=== PATIENT | female | born 1960 | race Caucasian/White ===

== ENCOUNTER → 2017-04-15 | Outpatient (REF) ==
[~2017-04-15] MED LIST: ALB6.7R INH; ALBU8.5H IH; ALPR-448 PO; ASPI-715 PO; ATOR40TA24 PO; ATOR40TA69 PO; AZIT-1 PO; CANA100T PO; CEPH-13 PO; CHOL500045 PO; CHOL500050 PO; CITA-156 PO; CYC10 PO; DESO60CR TP; DICL100G39 TOP; DULO60CA51 PO; ERGO500025 PO; EST3 PO; EST625 PO; ESZO3TAB37 PO; EXEN10PE4 SQ; EZE10 PO; FAMO-67 PO; FAMO20TA28 PO; GLI2 PO; GLIM4TAB50 PO; GOLYTE PO; GUAI120L3 PO; HYDR-385 PO; HYDR-389 PO; IBUP-1671 PO; IBUP600T22 PO; INSU100I34 SQ; INSU100I35 SQ; IPRA3AMP21 IH; IPRA4AER IH; LANC-648 MC; LANS30CA63 PO; LANS30CA70 PO; LEVI SUBQ; LEVO112T44 PO; LEVO137T22 PO; LEVO137T23 PO; LEVO50 PO; LIS20 PO; LISI20TA29 PO; LOR5 PO; MET500 PO; METF-410 PO; METH-543 PO; MOMETASONE TOP; MULT-820 PO; NITR-105 PO; OMEG-97 PO; ONDA4TAB PO; PRED20TA6 PO; PRO25 PO; PROM25S PR; Return to work; SYRI-1525 MC; TRAZ-156 PO; TRIA15CR40 TP; TRILI135PT PO; VERA180T53 PO; [UNRECOGNIZED DRUG - CODE]; [UNRECOGNIZED DRUG - CODE] PO
[2017-04-15 07:46] LABS: LDL CHOLESTEROL 88 mg/dl
== END ==
DX: Z02.9 Encounter for administrative examinations, unspecified (principal)

== ENCOUNTER → 2017-04-15 | Outpatient (CLI) | payer OTHER ==
--- NOTE | 2017-04-20 09:30 | RADIOLOGY IMAGING REPORT ---
FACILITY: [facility] - [place] PATIENT NAME: RONNY JAMESON : [id number] MR: [id number] V: [id number] EXAM DATE: [id number] ORDERING PHYSICIAN: ERICA MONTERO TECHNOLOGIST: Alessia Bishop PROCEDURE:BILATERAL DIGITAL SCREENING MAMMOGRAM WITH CAD AND 3D BREAST TOMOSYNTHESIS. COMPARISON:04/09/16 and priors back to 03/09/11.. INDICATIONS:SCREENING FINDINGS: Breast parenchyma is heterogeneously dense. There are scattered bilateral benign appearing calcifications. No concerning grouped calcifications. No mass or architectural distortion. No significant change from priors. DIAGNOSTIC CATEGORY 2--BENIGN FINDING. RECOMMENDATIONS: ROUTINE MAMMOGRAM AND CLINICAL EVALUATION. IMPRESSION: Bi-RADS 2: Benign finding. RECOMMENDATION: Followup screening mammogram in one year. Dictated by: Felipe Jules on 04/18/2017 at 9:02 Transcribed by: TATO on 04/18/2017 at 22:02 Approved by: Emilee Benoit M.D. on 04/20/2017 at 8:49 [facility]
== END ==
LOC: MAMO 04:20
PROVIDERS: ATTEND Nurse Practitioner Family
DX: Z12.31 Encounter for screening mammogram for malignant neoplasm of breast (principal); E11.9 Type 2 diabetes mellitus without complications
CPT/HCPCS: 36415; 77063; 77067; 83036

== ENCOUNTER → 2017-06-15 | Outpatient (CLI) | payer OTHER ==
[~2017-06-15] MED LIST changes: +TRAM-420 PO
--- NOTE | 2017-06-15 17:08 | RADIOLOGY IMAGING REPORT ---
FACILITY: [facility] PATIENT NAME: Cristo Hines : 1960 MR: [id number] V: [id number] EXAM DATE: ORDERING PHYSICIAN: TOMAS CORRIGAN TECHNOLOGIST: Location: [facility] Patient: Cristo Hines : 1960 Visit/Account:[id number] Date of Sevice: 06/15/[address] scan without contrast COMPARISONS: None ADDITIONAL PERTINENT HISTORY: History of diabetes and hypertension. TECHNIQUE: Multiple axial images were obtained from the skull base to the vertex without IV contrast . One of the following dose optimization techniques was utilized in the performance of this exam: Aut omated exposure control; adjustment of the mA and/or kV according to the patient's size; or use of an iterative reconstruction technique. Specific details can be referenced in the facility's radiology CT exam operational policy. FINDINGS: Midline shift: Negative Ventricles: Negative Brain parenchyma: Negative Extra-axial spaces: Negative Intracranial vasculature: Negative Osseous structures: Negative Paranasal sinuses and mastoid air cells: Negative Surrounding soft tissues and orbits: Negative IMPRESSION: Normal head CT scan without contrast. Report Dictated By: Blair Allen MD at 06/15/2017 5:03 PM Report E-Signed By: Blair Allen MD at 06/15/2017 5:04 PM WSN:[id number]
== END ==
LOC: CT 06:54
PROVIDERS: ATTEND Internal Medicine
DX: R51 Headache (principal); E11.9 Type 2 diabetes mellitus without complications; I10 Essential (primary) hypertension; E03.9 Hypothyroidism, unspecified; E78.5 Hyperlipidemia, unspecified
CPT/HCPCS: 70450

== ENCOUNTER → 2017-07-04 | Outpatient (CLI) | payer OTHER ==
[~2017-07-04] MED LIST changes: +BUTA1TAB14 PO; +METO25TA23 PO
[2017-07-04 11:10] LABS: PLATELET COUNT, AUTOMATED 181 K/uL (150-450)
== END ==
LOC: LAB 10:45
PROVIDERS: ATTEND Nurse Practitioner Family
DX: R51 Headache (principal); E11.9 Type 2 diabetes mellitus without complications; I10 Essential (primary) hypertension; E03.9 Hypothyroidism, unspecified
CPT/HCPCS: 36415; 82024; 82040; 82247; 82310; 82374; 82435; 82565; 82947; 83036; 84075; 84132; 84146; 84155; 84295; 84443; 84450; 84460; 84520; 85025; 85651; 86140

== ENCOUNTER → 2017-08-25 | Outpatient (CLI) | payer OTHER ==
[~2017-08-25] MED LIST changes: -METF-410 PO; +METF-411 PO
--- NOTE | 2017-08-25 14:11 | Medical Nutrition Therapy ---
Nutritional Education Nutrition Education Topic: Diabetic Nutrition Teaching Recipient: Patient Nutrition Counseling: Pt recieved CGM insertion with removal scheduled and report provided to PCP on . CMG Insertion/Removal: Yes Nutrition Monitoring & Eval RD Patient Assessment Time: 30 minutes Nutritional Comment: Provided 30 minutes of instuction and CGM insertion. Additional 60 minutes will be needed in removal or CGM, dowloading data and preparing report. Copies To Copies to: ERICA MONTERO APRN, BETH August 25, 2017 14:11
== END ==
LOC: DIET 12:03
PROVIDERS: ATTEND Nurse Practitioner Family
DX: E11.9 Type 2 diabetes mellitus without complications (principal); Z79.4 Long term (current) use of insulin
CPT/HCPCS: 95250

== ENCOUNTER → 2017-09-17 | Outpatient (CLI) | payer OTHER ==
[~2017-09-17] MED LIST changes: +BiPap
== END ==
LOC: RESP 19:54
PROVIDERS: ATTEND Nurse Practitioner Family
DX: G47.33 Obstructive sleep apnea (adult) (pediatric) (principal)

== ENCOUNTER → 2017-12-02 | Outpatient (CLI) | payer OTHER ==
[~2017-12-02] MED LIST changes: +INSU100C14 SQ; +IPRA3AMP10 IH; -IPRA3AMP21 IH; -METF-411 PO; +METF-450 PO; +NOVOLOG SUBQ; -TRAZ-156 PO; +TRAZ50TA34 PO
--- NOTE | 2017-12-02 16:14 | Medical Nutrition Therapy ---
Nutritional Education Nutrition Education Topic: Diabetic Nutrition Learning Readiness: Eager Response to Teaching: Return demonstration Teaching Recipient: Patient Nutrition Counseling: Provided insulin pump education and insertion. Basel setting set at 2.8. Bolis at 5:1 carb ratio or preset dose of 6U bkfrt, 11U lunch, 8U dinner. Insulin Sensitivity factor 18.5. Pt was given 20% temp basal until Levimir has been cleared at 6:00AM. Will call pt within 24 hrs to check BG levels and address any questions, concerns, or problems. Pt was able to successfully demonstrate knowledge of insulin pump. Nutrition Monitoring & Eval Nutritional Comment: provided 2 hr education on insulin pump Copies To Copies to: ERICA MONTERO APRNP-C ; CHAPARRO LOCK Dec 02, 2017 16:14
--- NOTE | 2017-12-05 15:50 | Medical Nutrition Therapy ---
Nutritional Education Nutrition Education Topic: Diabetic Nutrition Nutrition Counseling: Conducted phone call f/u 12/04. Pt''s BG was elevated however pt was on temp basel until 6:00 AM to clear out Levimer taken. did 3 day f/u Sun 12/05 at 15:30. BG cont elevated. Increased basal rate to 3 from 2.8. Demonstrated how to change rate and pt was successfully able to do this. This will provide additional 4.8gm insulin/24 hrs. Pt has been working since pump was started. Discussed with pt how she may need a basal rate for days off and another for days working. Pt is using preset bolis rather than CHO counting. Pt is leaving for conference and will be not working until 12/14. Will f/u on 12/14 and will get pt set up with care link. Pt was informed to contact pump instructor if any issues or concerns befor then. Nutrition Monitoring & Eval RD Patient Assessment Time: [address] Assessment Type: RD Education Nutritional Comment: provided 1 hr f/u education on insulin pump Copies To Copies to: ERICA MONTERO APRNP-C ; CHAPARRO LOCK Dec 05, 2017 15:49
== END ==
LOC: DIET 13:27
PROVIDERS: ATTEND Nurse Practitioner Family
DX: E11.65 Type 2 diabetes mellitus with hyperglycemia (principal); Z79.4 Long term (current) use of insulin

== ENCOUNTER → 2018-03-07 | Outpatient (CLI) | payer OTHER ==
[~2018-03-07] MED LIST changes: +LEVO150T78 PO; +NOVOLOG INJS
== END ==
LOC: LAB 06:35
PROVIDERS: ATTEND Nurse Practitioner Family
DX: E11.9 Type 2 diabetes mellitus without complications (principal)
CPT/HCPCS: 36415; 83036

== ENCOUNTER → 2018-03-07 | Outpatient (REF) ==
[2018-03-07 07:28] LABS: PLATELET COUNT, AUTOMATED 189 K/uL (150-450)
== END ==
DX: Z02.9 Encounter for administrative examinations, unspecified (principal)
CPT/HCPCS: 82040; 82247; 82310; 82374; 82435; 82465; 82565; 82947; 83718; 84075; 84132; 84155; 84295; 84443; 84450; 84460; 84478; 84520; 85025

== ENCOUNTER → 2018-05-11 | Outpatient (CLI) | payer OTHER ==
[~2018-05-11] MED LIST changes: +INSU100V24 SUBQ; +PANT40TA65 PO
--- NOTE | 2018-05-17 16:47 | RADIOLOGY IMAGING REPORT ---
FACILITY: [facility] - [place] PATIENT NAME: RONNY JAMESON : [id number] MR: [id number] V: [id number] EXAM DATE: [id number] ORDERING PHYSICIAN: ERICA MONTERO TECHNOLOGIST: Karissa Rivera PROCEDURE:BILATERAL DIGITAL SCREENING MAMMOGRAM WITH CAD ASSISTED INTERPRETATION & 3D TOMOSYNTHESIS COMPARISON:Prior mammograms. INDICATIONS:SCREENING FINDINGS: The breasts are heterogeneously dense. Benign appearing asymmetries are scattered bilaterally, unchanged. Benign appearing calcifications are scattered bilaterally. DIAGNOSTIC CATEGORY 1--NEGATIVE. RECOMMENDATIONS: ROUTINE MAMMOGRAM AND CLINICAL EVALUATION IN 1 YR. IMPRESSION: BIRADS 1: Negative. Dictated by: Pradeep Zurita M.D. on 05/12/2018 at 13:35 Transcribed by: HERMINIO on 05/12/2018 at 14:03 Approved by: Emilee Benoit M.D. on 05/17/2018 at 16:46 [facility]
== END ==
LOC: MAMO 00:38
PROVIDERS: ATTEND Nurse Practitioner Family
DX: Z12.31 Encounter for screening mammogram for malignant neoplasm of breast (principal)
CPT/HCPCS: 77063; 77067

== ENCOUNTER → 2018-06-27 | Outpatient (CLI) | payer OTHER ==
[~2018-06-27] MED LIST changes: +ATOR-1 PO; -VERA180T53 PO; +VERA180T57 PO
[2018-06-27 07:16] LABS: PLATELET COUNT, AUTOMATED 157 K/uL (150-450)
== END ==
LOC: LAB 06:35
PROVIDERS: ATTEND Obstetrics & Gynecology
DX: F52.31 Female orgasmic disorder (principal); R53.83 Other fatigue; R53.81 Other malaise; R68.82 Decreased libido
CPT/HCPCS: 36415; 82670; 83001; 84403; 84436; 84443; 84481; 85025

== ENCOUNTER → 2018-07-12 | Outpatient (CLI) | payer OTHER ==
[~2018-07-12] MED LIST changes: +KET10 PO
--- NOTE | 2018-07-12 12:03 | RADIOLOGY IMAGING REPORT ---
FACILITY: [facility] PATIENT NAME: Cristo Hines : 1960 MR: [id number] V: [id number] EXAM DATE: ORDERING PHYSICIAN: ANT SNELL TECHNOLOGIST: Location: [facility] [place] Patient: Cristo Hines : 1960 Visit/Account:[id number] Date of Sevice: 07/12/2018 CT ABDOMEN PELVIS W/O CON HISTORY: Right flank pain TECHNIQUE: Axial images acquired through the abdomen/pelvis. Coronal and sagittal reformatting also performed. No IV contrast administered.Dose Lowering Technique One of the following dose optimization techniques was utilized in the performance of this exam: Autom ated exposure control; adjustment of the mA and/or kV according to the patient's size; or use of an i terative reconstruction technique. Specific details can be referenced in the facility's radiology C T exam operational policy. COMPARISON: July 10, 2014 FINDINGS: Visualized lung bases: Negative. Hepatobiliary: There postsurgical changes from a cholecystectomy Spleen: Negative. Adrenals: Negative. Pancreas: Negative. Kidneys ureters and bladder: There Is a 1 mm nonobstructing calculus upper pole calyx of the right ki dney. There is a two mm nonobstructing calculus upper pole calyx of the left kidney. There is a punctate 1-2 mm calcification in the right side of the pelvis best seen on image 428 of se david 3. This was not appreciated on the prior CT and could be located within the right ureter. The right ureter however is not dilated and does not ideally localized on this noncontrast study. There is an extrarenal pelvis on the right similar to the prior study . Genitalia: Hysterectomy GI: There is diverticulosis of the left-sided colon although no CT evidence of acute diverticulitis. There are surgical clips adjacent to the cecum likely related to prior appendectomy Vessels/spaces/nodes: Negative. Bones/soft tissues: There bilateral inguinal hernias containing fat. No aggressive appearing bone l esions are seen Additional findings: None pertinent. IMPRESSION: There are nonobstructing calculi in both renal collecting systems. There is no evidence of hydronephrosis or hydroureter. There is a punctate 1 to 2 mm calcification i n the right side of the pelvis which is not appreciated on the prior CT. This could conceivably be w ithin the nondilated right ureter however of the ureters not ideally visualized due to lack of contra st and distention. Differential diagnosis would include a calcified phlebolith. Additional chronic findings as described Report Dictated By: Emilee Benoit MD at 07/12/2018 11:47 AM Report E-Signed By: Emilee Benoit MD at 07/12/2018 12:00 PM JEREN:AMICIVN
== END ==
LOC: LAB 09:07
PROVIDERS: ATTEND Nurse Practitioner Primary Care
DX: R10.9 Unspecified abdominal pain (principal)
CPT/HCPCS: 74176; 81001

== ENCOUNTER → 2018-09-08 | Outpatient (CLI) | payer OTHER ==
[~2018-09-08] MED LIST changes: -TRAZ50TA34 PO; +TRAZ50TA52 PO
== END ==
LOC: LAB 11:04
PROVIDERS: ATTEND Obstetrics & Gynecology
DX: E03.9 Hypothyroidism, unspecified (principal)
CPT/HCPCS: 36415; 84436; 84443; 84481